=== PATIENT | female | born 1985 | race African-American/Black ===

== ENCOUNTER 2018-05-24 14:33 | Emergency (ER) | payer OTHER ==
[2018-05-24 14:55] VITALS: BP 111/70; PULSE 97; TEMP 98.5; BMI 33.0
--- NOTE | 2018-05-24 15:15 | PDOC ---
History of Present Illness - General Chief Complaint: Cold Symptoms Stated Complaint: FLU SYMPTOMS Time Seen by Provider: 05/24/18 15:07 History Source: Patient Exam Limitations: No Limitations - History of Present Illness Timing/Duration: reports: constant, changing over time, getting worse Past History - Travel Traveled outside of the country in the last 30 days: No Close contact w/someone who was outside of country & ill: No - Past Medical History Allergies/Adverse Reactions: Allergies Allergy/AdvReac Type Severity Reaction Status Date / Time No Known Allergies Allergy Verified 05/24/18 14:46 Home Medications: Ambulatory Orders Guaifenesin [Robitussin] 100 mg PO Q6H 05/24/18 COPD: No - Surgical History Cholecystectomy: Yes - Suicide/Smoking/Psychosocial Hx Smoking Status: No Smoking History: Current some day smoker Number of Cigarettes Smoked Daily: 0 Information on smoking cessation initiated: No Review of Systems - Review of Systems Able to Perform ROS?: Yes Is the patient limited Indonesian proficient: Yes Constitutional: Yes: Symptoms Reported, See HPI, Malaise. No: Fever Respiratory: Yes: Symptoms reported, See HPI, Cough, Wheezing, Productive cough (with post tussive vomiting ) : Yes: Symptoms Reported, See HPI, Dysuria, Frequency, Urgency Integumentary: Yes: Symptoms Reported *Physical Exam - Vital Signs Last Vital Signs Temp Pulse Resp BP Pulse Ox 98.5 F 97 H 24 H 111/70 100 05/24/18 14:49 05/24/18 14:49 05/24/18 14:49 05/24/18 14:49 05/24/18 14:49 - Physical Exam General Appearance: Yes: Nourished, Appropriately Dressed, Apparent Distress, Mild Distress, Moderate Distress HEENT: positive: VLAD, TMs Normal (congestive but landmarks easily visualized), Pharynx Normal (noted posterior sinus drainage), Nasal Congestion, Rhinorrhea, Sinus Tenderness. negative: Pharyngeal Erythema Neck: positive: Supple, Lymphadenopathy (R), Lymphadenopathy (L) Respiratory/Chest: positive: Lungs Clear (course but clear, no wheezing or retractions). negative: Normal Breath Sounds, Decreased Breath Sounds, Wheezing Gastrointestinal/Abdominal: positive: Normal Bowel Sounds, Soft. negative: Tender, Distended, Guarding, Rebound Extremity: positive: Normal Capillary Refill, Normal Inspection, Normal Range of Motion Integumentary: positive: Normal Color, Dry, Warm Neurologic: positive: community relations advisor II-XII NML intact, Fully Oriented, Alert, Normal Mood/ Affect, Normal Response, Motor Strength 5/5 Moderate Sedation - Procedure Monitoring Vital Signs: Procedure Monitoring Vital Signs Temperature 98.5 F 05/24/18 14:49 Pulse Rate 97 H 05/24/18 14:49 Respiratory Rate 24 H 05/24/18 14:49 Blood Pressure 111/70 05/24/18 14:49 O2 Sat by Pulse Oximetry (%) 100 05/24/18 14:49 Progress Note - Progress Note Progress Note: test positive. Influenza testing negative. will Treat for common cold and early and recommended follow-up with PMD/[facility] for care *DC/Admit/Observation/Transfer Diagnosis at time of Disposition: at early stage, Common cold virus - Discharge Dispostion Disposition: HOME Condition at time of disposition: Stable Decision to Admit order: No - Referrals - Patient Instructions Printed Discharge Instructions: DI for Common Cold Additional Instructions: Rest, drink lots of fluids: Teas, water, soups, Pedialyte Saltwater gargles Steamy showers/seem to face break up mucus Avoid contact with others until fevers and cough resolved Lots of handwashing and good hygiene Tylenol for fever and pain Followup with private physician in one to 2 days as needed Return to emergency department for worsened symptoms, fevers, dehydration - Post Discharge Activity
[2018-05-24] MEDS ORDERED: ALBUTEROL SO4 2.5/IPRATROPIUM 0.5 INH SOL 3 ML VIAL.NEB. NEB ONE ×2 (15:16→15:22)
[2018-05-24 15:40] LABS: URINE APPEARANCE SLCLOUDY; URINE BILIRUBIN NEGATIVE (<2.0 mg/dL); URINE COLOR YELLOW; URINE GLUCOSE (UA) NEGATIVE (NEGATIVE); URINE KETONE TRACE (NEGATIVE); URINE LEUK ESTERASE TRACE (NEGATIVE); URINE NITRITE NEGATIVE (NEGATIVE); URINE PROTEIN 1+ (NEGATIVE); URINE UROBILINOGEN NEGATIVE mg/dL (0.2-1.0)
[2018-05-24 15:45] LABS: EPI CELLS MODERATE /HPF (FEW); URINE MUCUS MANY
== END 2018-05-24 16:08 | disposition home or self-care (01) ==
LOC: JERFT 14:33
PROC: 3E0F7GC Introduction of Other Therapeutic Substance into Respiratory Tract, Via Natural or Artificial Opening (ICD-10-PCS; principal; 2018-05-24)
DX: O26.891 Other specified pregnancy related conditions, first trimester (principal); J00 Acute nasopharyngitis [common cold]; Z3A.00 Weeks of gestation of pregnancy not specified
CPT/HCPCS: 81003; 81015; 84703; 87804; 94640; 99281-25

== ENCOUNTER 2025-03-05 05:18 | Emergency (ER) | payer OTHER ==
[2025-03-05 05:45] VITALS: RESP 20; TEMP 97.9; BMI 31.6
[2025-03-05 06:36] LABS: MCHC 30.9 g/dl (32.2-35.5); MEAN CELL VOLUME 91.0 fl (79.4-94.8); MEAN PLT VOLUME 9.8 fl (9.4-12.3); RDW 13.4 % (12.1-16.8)
[2025-03-05 06:41] LABS: EPI CELLS 11 /uL (0-25.1); HYALINE CASTS 29 /uL (0-3.1); URINE APPEARANCE TURBID; URINE BILIRUBIN 1+ (NEGATIVE); URINE COLOR RED; URINE GLUCOSE (UA) NEGATIVE (NEGATIVE); URINE KETONE NEGATIVE (NEGATIVE); URINE LEUK ESTERASE 2+ (NEGATIVE); URINE NITRITE POSITIVE (NEGATIVE); URINE PROTEIN 2+ (NEGATIVE); URINE RBC 41879 /uL (0-23.9); URINE UROBILINOGEN 0.2 mg/dL (0.2-1.0); URINE WBC 96 /uL (0-25.8)
[2025-03-05] MEDS ORDERED: ACETAMINOPHEN 325 MG TABLET (FP) ONE (06:50)
[2025-03-05 06:54] LABS: GLUCOSE,RANDOM 95.0 mg/dL (74-106); TOT PROT 7.8 g/dl (6.4-8.2)
[2025-03-05 06:55] LABS: CO2 25.0 mmol/L (21-32)
[2025-03-05 06:56] LABS: ALK PHOS 72.0 U/L (40-150)
[2025-03-05] MEDS: ACETAMINOPHEN 325 MG TABLET (FP) PO ONE (06:58)
[2025-03-05 06:59] LABS: CREATININE 0.77 mg/dL (0.55-1.3); SGOT/AST 16.0 U/L (5-34); SGPT/ALT 14.0 U/L (0-55)
[2025-03-05 07:02] LABS: INR 0.98 (0.83-1.09); PROTHROMBIN TIME (PATIENT) 10.8 SEC (9.7-13.0)
[2025-03-05 07:05] LABS: ACTIVATED PTT 37.6 SECONDS (25.2-36.5)
[2025-03-05 08:15] VITALS: BP 145/99; PULSE 83
[2025-03-05 09:23] LABS: URINE BACTERIA 0 /uL (0-1359)
== END 2025-03-05 08:15 | disposition home or self-care (01) ==
LOC: JER 05:18
DX: N92.0 Excessive and frequent menstruation with regular cycle (principal); R00.0 Tachycardia, unspecified; R19.09 Other intra-abdominal and pelvic swelling, mass and lump; N94.6 Dysmenorrhea, unspecified
CPT/HCPCS: 36415; 80053; 81003; 84703; 85025; 85610; 85730; 86850; 86900; 86901; 87086; 93005; 93010; 99284-25